=== PATIENT | female | born 1950 | race Caucasian/White ===

== ENCOUNTER 2019-11-01 08:52 | Emergency (ER) | payer MEDICARE, OTHER ==
[~2019-11-01] VITALS: Ht 160 cm; Wt 61.2 kg
[~2019-11-01 08:52] MED LIST: ALPR.25 PO; ESTR.05TPW; IBUP400; OMEP10ER; PANT40 PO; POTCHL10ER PO; Prilosec Otc20 MG; RABE20 PO; Vitamin D2000 UNIT PO
[2019-11-01] MEDS ORDERED: LEVSOD75 PO (11:02)
== END 2019-11-01 12:18 | disposition home or self-care (01) ==
LOC: ER 08:52
DX: B34.9 Viral infection, unspecified (principal); Z88.0 Allergy status to penicillin; Z88.8 Allergy status to other drugs, medicaments and biological substances; Z79.899 Other long term (current) drug therapy
CPT/HCPCS: 71045

== ENCOUNTER → 2020-10-25 | Outpatient (CLI) | payer MEDICARE ==
[~2020-10-25] MED LIST changes: +CALCIUM CARBON650 MG PO; +ESTRADIOL TOP; +Flonase 0.05% N16 GM; +Imitrex100 MG PO; +LACT PO; +LEVSOD75 PO; +LEVSOD88 PO; +MAXALT10 MG PO; +VITAMIN D325 MC3 PO
== END ==
LOC: LAB 15:22 → LAB SHORT 15:22
DX: D48.5 Neoplasm of uncertain behavior of skin (principal); Z88.0 Allergy status to penicillin; Z88.8 Allergy status to other drugs, medicaments and biological substances
CPT/HCPCS: 88305

== ENCOUNTER 2020-11-10 09:07 | Day surgery (SDC) | payer MEDICARE ==
[~2020-11-10] VITALS: Ht 162.6 cm; Wt 58.3 kg
--- NOTE | 2020-11-10 10:05 | NUR ---
11/10/20 1005 [facility],Ramirez ORTIZ TRIED 2-3TIMES IN RIGHTH[place] 3 TRY RIGHT AC CML INFLATRATED POSSIBLY
== END 2020-11-10 11:15 | disposition home or self-care (01) ==
LOC: ORSCSDS 09:07
PROVIDERS: Surgery
PROC: 0DBK8ZX Excision of Ascending Colon, Via Natural or Artificial Opening Endoscopic, Diagnostic (ICD-10-PCS; principal; 2020-11-10 10:30)
DX: Z12.11 Encounter for screening for malignant neoplasm of colon (principal); Z86.010 Personal history of colon polyps; D12.2 Benign neoplasm of ascending colon; E78.5 Hyperlipidemia, unspecified; K64.8 Other hemorrhoids; E03.9 Hypothyroidism, unspecified; Z79.899 Other long term (current) drug therapy
CPT/HCPCS: 88302; J2704; J7120

== ENCOUNTER → 2021-05-03 | Outpatient (CLI) | payer MEDICARE | END | disposition home or self-care (01) | LOC: LAB SHORT 11:20 → LAB 11:20 | DX: D22.72 Melanocytic nevi of left lower limb, including hip (principal) | CPT/HCPCS: 88305 ==

== ENCOUNTER → 2021-06-07 | Outpatient (CLI) | payer MEDICARE | END | disposition home or self-care (01) | LOC: LAB SHORT 07:37 | DX: D22.72 Melanocytic nevi of left lower limb, including hip (principal) | CPT/HCPCS: 88305 ==

== ENCOUNTER → 2022-03-06 | Outpatient (CLI) | payer MEDICARE | END | disposition home or self-care (01) | LOC: LAB 18:30 → LAB SHORT 18:30 | DX: N76.0 Acute vaginitis (principal) | CPT/HCPCS: 87070; 87205 ==

== ENCOUNTER → 2022-04-01 | Outpatient (CLI) | payer MEDICARE ==
[2022-04-02 15:25] LABS: Candida species (DNA Probe) Negative (NEGATIVE); G. vaginalis (DNA Probe) Negative (NEGATIVE); T. vaginalis (DNA Probe) Negative (NEGATIVE)
== END | disposition home or self-care (01) ==
LOC: LAB SHORT 15:14
PROVIDERS: Advanced Practice Midwife
DX: N76.0 Acute vaginitis (principal)
CPT/HCPCS: 87480; 87510; 87660

== ENCOUNTER → 2023-07-29 | Outpatient (CLI) | payer OTHER | LOC: LAB 09:00 → LAB SHORT 09:00 | DX: K21.9 Gastro-esophageal reflux disease without esophagitis (principal) | CPT/HCPCS: 87338 ==